=== PATIENT | female | born 1930 | race Two or more races ===

== ENCOUNTER 2022-01-30 16:00 | Emergency (ER) | payer OTHER ==
[~2022-01-30] VITALS: Ht 147.3 cm; Wt 81.6 kg
[2022-01-30] MEDS ORDERED: SERTRALINE (16:32)
[2022-01-30] MEDS ORDERED: SERTRALINE20 MG/1 ML (16:32)
[2022-01-30] MEDS ORDERED: ELIQUIS2.5 MG (16:33)
[2022-01-30] MEDS ORDERED: ATORVASTATIN CA20 MG (16:33)
[2022-01-30] MEDS ORDERED: METOPROLOL SUCC25 MG (16:33)
[2022-01-30] MEDS ORDERED: IRON236 MG (16:33)
[2022-01-30] MEDS ORDERED: HYDROCHLOROTHIA25 MG (16:33)
== END 2022-01-31 09:03 | disposition home or self-care (01) ==
LOC: ER 16:00
DX: F41.9 Anxiety disorder, unspecified (principal); C44.90 Unspecified malignant neoplasm of skin, unspecified